=== PATIENT | male | born 1950 | race Caucasian/White ===

== ENCOUNTER 2022-01-03 20:11 | Emergency (ER) | payer MEDICARE, BC ==
[2022-01-03] MEDS ORDERED: Ketorolac 30 MG/ML SDV IVPUSH ONE (20:31)
[2022-01-03 20:59] LABS: TROPONIN I HIGH SENSITIVITY 9.7 pg/mL (<=60.3)
== END 2022-01-03 22:10 | disposition home or self-care (01) ==
LOC: JP.ED 20:11
DX: M94.0 Chondrocostal junction syndrome [Tietze] (principal); Z79.899 Other long term (current) drug therapy
CPT/HCPCS: 36415; 71046; 80053; 84484; 85025; 93005; 96374; 99285; J1885; 93010; 99284

== ENCOUNTER 2022-12-30 21:17 | Emergency (ER) | payer MEDICARE, BC ==
[2022-12-30] MEDS ORDERED: Sodium Chloride 0.9% 10 ML Syringe FLUSH PRN ×2 (21:18→21:22)
[2022-12-30] MEDS ORDERED: Acetaminophen 500 MG Tab PO ONE (22:25)
[2022-12-30] MEDS ORDERED: Ibuprofen 400 MG Tab PO ONE (22:32)
[2022-12-30 22:41] LABS: ESTIMATED GFR 92 mL/min (>60)
[2022-12-30] MEDS ORDERED: predniSONE 20 MG Tab PO ONE (23:13)
[2022-12-30] MEDS ORDERED: Amoxicillin/Clavulanate K 875-125 MG Tab PO ONE (23:13)
[2022-12-30] MEDS ORDERED: Albuterol/Ipratropium 3.0-0.5 MG/3 ML Neb Soln NEB ONE (23:13)
== END 2022-12-31 00:17 | disposition home or self-care (01) ==
LOC: JP.ED 21:17
DX: J98.01 Acute bronchospasm (principal); J01.90 Acute sinusitis, unspecified; C79.9 Secondary malignant neoplasm of unspecified site; Z20.822 Contact with and (suspected) exposure to COVID-19
CPT/HCPCS: 36415; 71045; 71045-26; 80053; 81001; 83605; 84145; 85025; 86140; 93005; 93010; 94640; 99283; 99284; A9270-GY; J3490; J7512; J7620; U0002